=== PATIENT | female | born 1950 | race Caucasian/White ===

== ENCOUNTER → 2024-03-27 16:58 | Outpatient (REF) | payer MEDICARE, SELFPAY ==
[2024-03-27 18:22] LABS: % Basophils 0.8 % (0-2); % Eosinophils 2.3 % (0-6); % Monocytes 8.7 % (1.7-9.3); % Neutrophils 64.2 % (42.2-75.2); Absolute Eosinophils 0.1 10^3/uL (0-0.7); Absolute Lymphocytes 1.2 10^3/uL (1.2-3.4); Absolute Monocytes 0.5 10^3/uL (0.1-0.6); Absolute Neutrophils 3.3 10^3/uL (1.4-6.5); Hematocrit 43.6 % (37.0-47.0); Hemoglobin 14.1 g/dL (12.0-16.0); Mean Corp Hgb Conc. 32.3 g/dL (33.0-37.0); Mean Corpuscular Hgb 31.4 pg (27.0-31.0); Mean Corpuscular Volume 97.1 fL (81.0-99.0); Mean Platelet Volume 10.8 fL (7.4-10.4); Nucleated Red Blood Cells % 0 %; Platelet Count 180 10^3/uL (130-400); Red Blood Cell Count 4.49 10^6/uL (4.20-5.40); Red Cell Dist. Width 13.2 % (11.5-14.5); White Blood Cell Count 5.2 10^3/uL (4.8-10.8)
[2024-03-27 18:23] LABS: ALT (SGPT) < 10 U/L (0-35); AST (SGOT) 28 U/L (14-36); Albumin 4.4 g/dl (3.5-5.0); Alkaline Phosphatase 79 U/L (38-126); Blood Urea Nitrogen 20 mg/dl (7-17); Calcium 9.9 mg/dl (8.4-10.2); Carbon Dioxide 29 mmol/L (22-30); Chloride 99 mmol/L (98-107); Glucose 99 mg/dl (70-99); HDL Cholesterol 59 mg/dl; LDL Cholesterol, Calculated 115 mg/dl; Potassium 4.4 mmol/L (3.5-5.1); Sodium 137 mmol/L (135-145); Total Bilirubin 0.9 mg/dl (0.2-1.3); Total Cholesterol 194 mg/dl (50-199); Total Protein 6.8 g/dl (6.3-8.2); Triglyceride 101 mg/dl (10-149); Very Low Density Lipoprotein 20 mg/dl (0-30); eGFR > 60.00
[2024-03-27 18:53] LABS: TSH Reflex To Free T4 0.91 uIU/ml (0.47-4.68)
== END ==
LOC: CLAB 16:58
PROVIDERS: ATTENDING PHYSICIAN Internal Medicine
DX: G20.A1 Parkinson's disease without dyskinesia, without mention of fluctuations (principal); F41.9 Anxiety disorder, unspecified; E03.9 Hypothyroidism, unspecified
CPT/HCPCS: 36415; 80053; 80061; 84443; 85025

== ENCOUNTER 2025-05-15 02:35 | Inpatient (IN) | payer MEDICARE, SELFPAY ==
[2025-05-14 22:58] VITALS: BP 152/75; BMI 23.9
[2025-05-14 23:00] VITALS: BP 152/75
[2025-05-14] MEDS: ROXICODONE 5 MG PO (23:29)
--- NOTE | 2025-05-14 23:52 | ED.GENMED ---
History of Present Illness
<Avel Hernandez PA-C - Last Filed: 05/16/25 08:14>
General
Chief Complaint: Fall
Time Seen by Provider: 05/14/25 23:15
History of Present Illness
History of Present Illness:
75-year-old female with history of hypertension, hyperlipidemia, and Parkinson's presents for evaluation after a fall. States she lost her balance and fell onto her left side. Prior history of left total hip replacement. Having intense left hip
pain and unable to move the hip. No visible deformity noted on arrival. Denies headache or back pain. Denies head injury. Not on blood thinners.
Past History
<Avel Hernandez PA-C - Last Filed: 05/16/25 08:14>
Past History
ED Past Medical History: GERD, HTN, Hypercholesterolemia and Hypothyroidism
ED Past Surgical History: Gynecological
Social History
Tobacco: Non-smoker
Personal:
Living: with family
Review of Systems
<ADITI López Last Filed: 05/16/25 08:14>
Review of Systems
Allergies reviewed?: Yes
All Other Systems: ROS reviewed and negative except as documented in HPI and ROS
Phy Exam
<ADITI López Last Filed: 05/16/25 08:14>
Physical Exam
Physical Exam:
GEN: Well appearing, NAD, WDWN
HEENT: Oral mucosa moist, no scleral icterus
Cardiac: Regular rate
Lung: No respiratory distress, no tachypnea
MSK: No gross deformity or injuries. No appreciable deformity or shortening of the left lower extremity. Tenderness to palpation of the greater trochanter, left hip range of motion is normal however pain is elicited throughout entire field of
motion. No lumbar paraspinal or spinous process tenderness
Skin: Good color, no pallor or jaundice, no rashes
Neuro: AO x3, moves all extremities freely
Psych: Calm, cooperative
Course
<Avel Hernandez PA-C - Last Filed: 05/16/25 08:14>
Orders/Labs/Results
Orders:
Orders
05/14/25 23:20
Oxycodone [Roxicodone] 5 mg PO NOW STA
05/15/25 00:15
CR Hip - LT w/wo Pel 2-3 Vw* Urgent
Reason For Exam: fall
Include a pelvis x-ray?: Yes
05/15/25 00:28
CT Pelvis W/o Iv Contrast Urgent
Comment:
Reason For Exam: poss L hip fx
05/15/25 02:10
Admit/Transfer Patient As Directed
Co-Sign Provider:
Level of Care: Inpatient admission
Assign to:: Medical/Surgical
Physician / Group: Zena[facility]
Diagnosis: L periprosthetic femoral fracture
Reason for Hospitalization: Left periprosthetic femoral fracture
Expected length of stay greater than two midnights?: Yes
ELOS- Estimated Length of Stay in days: 2
I certify the patient meets the requirements for IP care: Yes
PRN Pain Medication Management As Directed
May give lesser potent ordered pain med per pt: Yes
preference::
Protocol:: Medication orders for pain may be administered in a
manner that supports deferring to patient preference
when the pt is:
- Requesting an ordered lesser potent pain medication.
Least to most potent pain medications are defined
as: acetaminophen < NSAID < tramadol < opioids
(morphine, oxycodone, hydromorphone).
- Requesting a lesser dose of the same medication IF
ORDERED.
- Requesting a less intrusive route of administration
if both routes are prescribed by the provider (PO <
IV).
05/15/25 02:12
Code Status As Directed
Resuscitation Status: Do not resuscitate
Reached after discussion with pt or family/Healthcare POA: Yes
05/15/25 02:13
DNR Bracelet Application ONCE
05/15/25 02:38
Ketorolac [Toradol] 15 mg IV NOW STA
05/15/25 03:25
HYDROmorphone [Dilaudid] 0.25 mg IV Q1HPRN PRN
Magnesium Hydroxide [Milk of Magnesia] 30 ml PO DAILYPRN PRN
Oxycodone [Roxicodone] 10 mg PO Q4HPRN PRN
Oxycodone [Roxicodone] 5 mg PO Q4HPRN PRN
05/15/25 03:25
Case Management Consult ONCE
Case Management Consult: Discharge Planning
ORTHOPEDIC CONSULT Routine
Consulting Provider: Ernst Arnold
Was physician already notified: Yes
Activity As Directed
Activity Level: With Assistance
Bladder Scan As Directed
Follow Bladder Retention/Intermittent Cath Algorithm?: Yes
PRN if no void in __ hours: 6
Comment: if not voiding 6 hrs upon arrival to floor, bladder scan & follow algorithm
Intake/ Output As Directed
Frequency: Per unit guidelines
Pneumatic Compression Sleeves As Directed
Type: Knee high
Straight Cath As Directed
Frequency: Per Retention Algorithm
Additional Instructions: straight cath as needed per acute urinary retention algorithm for 24 hrs
Additional Instructions: for bladder scan greater than 400 mL
Vital Signs As Directed
Frequency: Per unit guidelines
DX Deep Vein Thrombosis Video Routine
05/15/25 04:00
Acetaminophen [Tylenol] 650 mg PO Q4HWA
05/15/25 06:00
Levothyroxine [Synthroid] 100 mcg PO DAILY @ 0600
Rytary See Dose Instructions PO 0000,0600,1200,1800
05/15/25 08:00
Bupropion(24Hr)Extended Releas [WELLBUTRIN XL (24 hour extended release)] 300 mg PO DAILY
Magnesium Oxide 400 mg PO DAILY
Metoprolol [Lopressor] 50 mg PO DAILY
05/15/25 20:00
Docusate Sodium [Colace] 100 mg PO BID
Sennosides [Senokot] 17.2 mg PO BID
05/15/25 22:00
Melatonin 5 mg PO HS
Pantoprazole [Protonix] 40 mg PO HS
Vital Signs
Initial and Last Documented VS:
Initial Vital Signs
Temp Pulse Resp BP Pulse Ox
98.2 F 74 18 152/75 97
05/14/25 22:58 05/14/25 22:58 05/14/25 22:58 05/14/25 22:58 05/14/25 22:58
Last Documented Vital Signs
Temp Pulse Resp BP Pulse Ox
99.1 F 62 16 147/74 98
05/15/25 23:09 05/15/25 23:09 05/15/25 23:09 05/15/25 23:09 05/15/25 23:09
Helenlt;Krysta Cooley PA-C - Last Filed: 05/15/25 01:59>
Orders/Labs/Results
Orders:
Orders
05/14/25 23:20
Oxycodone [Roxicodone] 5 mg PO NOW STA
05/15/25 00:15
CR Hip - LT w/wo Pel 2-3 Vw* Urgent
Reason For Exam: fall
Include a pelvis x-ray?: Yes
05/15/25 00:28
CT Pelvis W/o Iv Contrast Urgent
Comment:
Reason For Exam: poss L hip fx
05/15/25 02:10
Admit/Transfer Patient As Directed
Co-Sign Provider:
Level of Care: Inpatient admission
Assign to:: Medical/Surgical
Physician / Group: Zenaida
Diagnosis: L periprosthetic femoral fracture
Reason for Hospitalization: Left periprosthetic femoral fracture
Expected length of stay greater than two midnights?: Yes
ELOS- Estimated Length of Stay in days: 2
I certify the patient meets the requirements for IP care: Yes
PRN Pain Medication Management As Directed
May give lesser potent ordered pain med per pt: Yes
preference::
Protocol:: Medication orders for pain may be administered in a
manner that supports deferring to patient preference
when the pt is:
- Requesting an ordered lesser potent pain medication.
Least to most potent pain medications are defined
as: acetaminophen < NSAID < tramadol < opioids
(morphine, oxycodone, hydromorphone).
- Requesting a lesser dose of the same medication IF
ORDERED.
- Requesting a less intrusive route of administration
if both routes are prescribed by the provider (PO <
IV).
05/15/25 02:12
Code Status As Directed
Resuscitation Status: Do not resuscitate
Reached after discussion with pt or family/Healthcare POA: Yes
05/15/25 02:13
DNR Bracelet Application ONCE
05/15/25 02:38
Ketorolac [Toradol] 15 mg IV NOW STA
05/15/25 03:25
HYDROmorphone [Dilaudid] 0.25 mg IV Q1HPRN PRN
Magnesium Hydroxide [Milk of Magnesia] 30 ml PO DAILYPRN PRN
Oxycodone [Roxicodone] 10 mg PO Q4HPRN PRN
Oxycodone [Roxicodone] 5 mg PO Q4HPRN PRN
05/15/25 03:25
Case Management Consult ONCE
Case Management Consult: Discharge Planning
ORTHOPEDIC CONSULT Routine
Consulting Provider: Ernst Arnold
Was physician already notified: Yes
Activity As Directed
Activity Level: With Assistance
Bladder Scan As Directed
Follow Bladder Retention/Intermittent Cath Algorithm?: Yes
PRN if no void in __ hours: 6
Comment: if not voiding 6 hrs upon arrival to floor, bladder scan & follow algorithm
Intake/ Output As Directed
Frequency: Per unit guidelines
Pneumatic Compression Sleeves As Directed
Type: Knee high
Straight Cath As Directed
Frequency: Per Retention Algorithm
Additional Instructions: straight cath as needed per acute urinary retention algorithm for 24 hrs
Additional Instructions: for bladder scan greater than 400 mL
Vital Signs As Directed
Frequency: Per unit guidelines
DX Deep Vein Thrombosis Video Routine
05/15/25 04:00
Acetaminophen [Tylenol] 650 mg PO Q4HWA
05/15/25 06:00
Levothyroxine [Synthroid] 100 mcg PO DAILY @ 0600
Rytary See Dose Instructions PO 0000,0600,1200,1800
05/15/25 08:00
Bupropion(24Hr)Extended Releas [WELLBUTRIN XL (24 hour extended release)] 300 mg PO DAILY
Magnesium Oxide 400 mg PO DAILY
Metoprolol [Lopressor] 50 mg PO DAILY
05/15/25 20:00
Docusate Sodium [Colace] 100 mg PO BID
Sennosides [Senokot] 17.2 mg PO BID
05/15/25 22:00
Melatonin 5 mg PO HS
Pantoprazole [Protonix] 40 mg PO HS
Vital Signs
Initial and Last Documented VS:
Initial Vital Signs
Temp Pulse Resp BP Pulse Ox
98.2 F 74 18 152/75 97
05/14/25 22:58 05/14/25 22:58 05/14/25 22:58 05/14/25 22:58 05/14/25 22:58
Last Documented Vital Signs
Temp Pulse Resp BP Pulse Ox
99.1 F 62 16 147/74 98
05/15/25 23:09 05/15/25 23:09 05/15/25 23:09 05/15/25 23:09 05/15/25 23:09
<Emmie Duran DO - Last Filed: 05/15/25 01:39>
Orders/Labs/Results
Orders:
Orders
05/14/25 23:20
Oxycodone [Roxicodone] 5 mg PO NOW STA
05/15/25 00:15
CR Hip - LT w/wo Pel 2-3 Vw* Urgent
Reason For Exam: fall
Include a pelvis x-ray?: Yes
05/15/25 00:28
CT Pelvis W/o Iv Contrast Urgent
Comment:
Reason For Exam: poss L hip fx
05/15/25 02:10
Admit/Transfer Patient As Directed
Co-Sign Provider:
Level of Care: Inpatient admission
Assign to:: Medical/Surgical
Physician / Group: Zenaida
Diagnosis: L periprosthetic femoral fracture
Reason for Hospitalization: Left periprosthetic femoral fracture
Expected length of stay greater than two midnights?: Yes
ELOS- Estimated Length of Stay in days: 2
I certify the patient meets the requirements for IP care: Yes
PRN Pain Medication Management As Directed
May give lesser potent ordered pain med per pt: Yes
preference::
Protocol:: Medication orders for pain may be administered in a
manner that supports deferring to patient preference
when the pt is:
- Requesting an ordered lesser potent pain medication.
Least to most potent pain medications are defined
as: acetaminophen < NSAID < tramadol < opioids
(morphine, oxycodone, hydromorphone).
- Requesting a lesser dose of the same medication IF
ORDERED.
- Requesting a less intrusive route of administration
if both routes are prescribed by the provider (PO <
IV).
05/15/25 02:12
Code Status As Directed
Resuscitation Status: Do not resuscitate
Reached after discussion with pt or family/Healthcare POA: Yes
05/15/25 02:13
DNR Bracelet Application ONCE
05/15/25 02:38
Ketorolac [Toradol] 15 mg IV NOW STA
05/15/25 03:25
HYDROmorphone [Dilaudid] 0.25 mg IV Q1HPRN PRN
Magnesium Hydroxide [Milk of Magnesia] 30 ml PO DAILYPRN PRN
Oxycodone [Roxicodone] 10 mg PO Q4HPRN PRN
Oxycodone [Roxicodone] 5 mg PO Q4HPRN PRN
05/15/25 03:25
Case Management Consult ONCE
Case Management Consult: Discharge Planning
ORTHOPEDIC CONSULT Routine
Consulting Provider: Ernst Arnold
Was physician already notified: Yes
Activity As Directed
Activity Level: With Assistance
Bladder Scan As Directed
Follow Bladder Retention/Intermittent Cath Algorithm?: Yes
PRN if no void in __ hours: 6
Comment: if not voiding 6 hrs upon arrival to floor, bladder scan & follow algorithm
Intake/ Output As Directed
Frequency: Per unit guidelines
Pneumatic Compression Sleeves As Directed
Type: Knee high
Straight Cath As Directed
Frequency: Per Retention Algorithm
Additional Instructions: straight cath as needed per acute urinary retention algorithm for 24 hrs
Additional Instructions: for bladder scan greater than 400 mL
Vital Signs As Directed
Frequency: Per unit guidelines
DX Deep Vein Thrombosis Video Routine
05/15/25 04:00
Acetaminophen [Tylenol] 650 mg PO Q4HWA
05/15/25 06:00
Levothyroxine [Synthroid] 100 mcg PO DAILY @ 0600
Rytary See Dose Instructions PO 0000,0600,1200,1800
05/15/25 08:00
Bupropion(24Hr)Extended Releas [WELLBUTRIN XL (24 hour extended release)] 300 mg PO DAILY
Magnesium Oxide 400 mg PO DAILY
Metoprolol [Lopressor] 50 mg PO DAILY
05/15/25 20:00
Docusate Sodium [Colace] 100 mg PO BID
Sennosides [Senokot] 17.2 mg PO BID
05/15/25 22:00
Melatonin 5 mg PO HS
Pantoprazole [Protonix] 40 mg PO HS
Vital Signs
Initial and Last Documented VS:
Initial Vital Signs
Temp Pulse Resp BP Pulse Ox
98.2 F 74 18 152/75 97
05/14/25 22:58 05/14/25 22:58 05/14/25 22:58 05/14/25 22:58 05/14/25 22:58
Last Documented Vital Signs
Temp Pulse Resp BP Pulse Ox
99.1 F 62 16 147/74 98
05/15/25 23:09 05/15/25 23:09 05/15/25 23:09 05/15/25 23:09 05/15/25 23:09
<Avel Hernandez PA-C - Last Filed: 05/16/25 08:14>
MDM/Problems Addressed
MDM/Problems Addressed:
75 yo female presents after mechanical fall. She is markedly tender on exam despite lack of deformity. XR of the hip independently interpreted by me is suspicious for a non displaced fx line extending from the femoral stem of her hardware,
longitudinally oriented. Will confirm with non contrast CT. Signed out to Krysta Cooley PA-C pending CT reading. Anticipate admission either way due to pain
<Avel Hernandez PA-C - Last Filed: 05/16/25 08:14>
*Pulse Oximetry
SaO2: 97
Oxygen Mode of Delivery: Room air
<Krysta Cooley PA-C - Last Filed: 05/15/25 01:59>
*Pulse Oximetry
Patient hypoxic: no
*Critical Care Note
Total Time (30-74mins, 75-104mins- exclusive of procedures): Not Applicable
<Krysta YairAndra Cooley PA-C - Last Filed: 05/15/25 01:59>
Update Note
Update Note:
Update
1:34 am, I received patient in signout. CT reveals left acute periprosthetic fracture of the left proximal to mid femoral shaft. Patient not requesting additional pain control at this time. Hip replacement done by Dr. Garcia. Will refer for
admission. ED attending aware
ED Attending Note
<Avel Hernandez PA-C - Last Filed: 05/16/25 08:14>
-
Portions of this chart may have been created with voice recognition software.� Occasional wrong word or��sound alike� substitutions may have occurred due to the inherent limitations of voice recognition software.
<Emmie Duran DO - Last Filed: 05/15/25 01:39>
ED Attending Note
ED Attending Note:
75-year-old female with prior history of left hip replacement presenting for hip pain after she fell losing her balance. Patient notes inability to bear weight. Denies head injury or loss denies. Vital signs significant for mild hypertension,
however resolved without intervention.
On exam patient in no acute distress. No obvious deformity to left hip. Distal sensation and pulses intact. Limited range of motion secondary to pain. Initial x-ray without obvious fracture. However, CT obtained given patient's discomfort and
inability bear weight which shows periprosthetic fracture. Will make orthopedics aware and plan for admission.
Discharge Plan
Departure
Patient Disposition: Admit
Date of Disposition: 05/15/25
Time of Disposition: 01:41
Admit to: Med/Surg
Presentation/result/management discussed w/ accepting MD/DO: Hospitalist
Patient with high blood pressure during this ER visit?: Yes
Condition: Fair
Discharge Problem:
Periprosthetic fracture around internal prosthetic left hip joint
Interventions
Interventions:
*Risk Screen - Suicide Last Done: 05/14/25 22:58
*General Assessment Last Done: 05/14/25 22:58
*Neglect/Abuse Screening Last Done: 05/14/25 22:58
*ED- Fall Risk Assessment Last Done: 05/14/25 22:58
*ED COVID-19 Vaccine History Last Done: 05/14/25 22:58
*ED Influenza Vaccine History Last Done: 05/14/25 22:58
*Nursing Disposition Last Done: 05/15/25 03:41
ED-Musculoskeletal Assessment Last Done: 05/14/25 23:06
ED- Neurological Assessment Last Done: 05/14/25 23:06
ED-Skin Assessment Last Done: 05/14/25 23:06
Discharge Date and Time
Discharge Date/Time: 05/15/25 03:53
[2025-05-15] VITALS (10 sets, daily range): BP systolic 124–161; BP diastolic 63–74; PULSE 57–65; O2SAT 99; BMI 24.5
--- NOTE | 2025-05-15 01:47 | HPS.HSE ---
Family Physician
-
Family Physician: Baltazar Osuna
Chief Complaint
-
Trip and fall
History of Present Illness
75-year-old female with past medical history significant for Parkinson's disease, hypertension, hyperlipidemia, GERD, hypothyroid and history of left hip replacement who presents to the emergency department following a mechanical fall.
Patient reported that ankle seemed to twist while she was walking and then she fell on her left side. She braced her fall with left arm and did not strike her head on the floor. She did land on her left leg area and started having pain
immediately. There was no loss of consciousness. She denied feeling dizzy or lightheaded. She denied any focal weakness beyond baseline. She does ambulate with a walker at baseline and does have baseline tremor and gait difficulty. She lives
with spouse as well as her children.
In the emergency room she was afebrile, blood pressure was 131/60 with a pulse of 65 and she was satting 98% on room air. CT shows a left total hip replacement with acute periprosthetic, comminuted longitudinal oriented fracture of the left
proximal to mid femoral shaft.
Medical History
Past Medical History
Past Medical History: Reports GERD, HTN, Hypercholesterolemia, Hypothyroidism and Other (Uterine fibroids)
Past Surgical History: Reports Cholecystectomy, Gynocological (Oophorectomy), Orthopedic (Left total hip arthroplasty) and Tonsilectomy
Social History
Tobacco: Non-smoker
Alcohol: None
Drug: None
Personal:
Living: With Family
Employment: Retired
Family History
Family History: Not pertinent
Allergies / Home Medications
Allergies reflects when Allergies were last updated in [employer].
Home Medications with original date entered in [employer]
Allergy/Medication List:
Allergies
Allergy/AdvReac Type Severity Reaction Status Date / Time
erythromycin base Allergy ABDOMINAL Verified 12/20/19 10:53
CRAMPING
AND
BLOATING
metaxalone (From Skelaxin) Allergy Unknown Verified 12/20/19 10:53
nifedipine (From Procardia) Allergy FATHER Verified 12/20/19 10:53
FROM
PROCARDIA
AND
PATIENT
WAS TOLD
NOT TO TAKE
Penicillins Allergy Anaphylaxis-ITCHING Verified 12/20/19 10:53
AND
SWELLING
prochlorperazine edisylate Allergy 'facial Verified 12/20/19 10:53
(From Compazine) twitching'
prochlorperazine maleate Allergy 'facial Verified 12/20/19 10:53
(From Compazine) twitching'
Sulfa (Sulfonamide Allergy Swelling, Verified 01/02/20 08:35
Antibiotics) itching,
reddened
skin
sumatriptan Allergy severe Verified 12/20/19 10:53
tingling
and
burning of
skin
triamcinolone Allergy Rash/FACIAL Verified 12/20/19 10:53
FLUSH
cillins Allergy Swelling Uncoded 12/20/19 10:53
pollen Allergy Itching Uncoded 12/20/19 10:53
Home Medications
Lydia 1 tab PO DAILY Allergies 11/08/16
[id number] 0.4 mg-calcium 162 mg-iron 18 vm-mfrnisy-oozyvs tablet 1 tab PO DAILY Supplement 11/08/16
Zinc 25 mg PO QPM Stroke 12/20/19
acetaminophen 650 mg tablet,extended release (Tylenol Arthritis) 1,300 mg PO Q8H Pain 12/20/19
aluminum hydrox-magnesium carb 95 mg-358 mg/15 mL oral suspension (Acid Gone Antacid) 1 dose PO PRN PRN constipation 12/20/19
bupropion HCl 150 mg 24 hr tablet, extended release 300 mg PO DAILY Mental Health/Anxiety 12/20/19
cholecalciferol (vitamin D3) 25 mcg (1,000 unit) tablet 3,000 units PO DAILY Supplement 12/20/19
fluticasone propionate 50 mcg/actuation nasal spray,suspension 1 spray intranasal PRN PRN congestion 12/20/19
levothyroxine 100 mcg tablet 100 mcg PO DAILY@0700 Thyroid 12/20/19
magnesium 200 mg tablet 600 mg PO DAILY Supplement 12/20/19
melatonin 5 mg tablet 5 mg PO HS Sleep 12/20/19
metoprolol tartrate 50 mg tablet 50 mg PO DAILY Blood pressure 12/20/19
mupirocin 2 % topical ointment 1 applic intranasal BID #1 tube 12/21/19
aspirin 325 mg tablet,delayed release 325 mg PO DAILY 01/03/20
magnesium hydroxide 400 mg/5 mL oral suspension 30 ml PO DAILYPRN PRN constipation 01/03/20
omeprazole 40 mg capsule,delayed release 40 mg PO HS Gastrointestinal issue ##0 01/03/20
pantoprazole 40 mg tablet,delayed release 40 mg PO HS 01/03/20
tramadol 50 mg tablet 50 mg PO Q6HPRN PRN moderate-severe pain #35 tabs 01/03/20
Rytary 48.75 mg PO 4XD 05/15/25
Review of Systems
-
Constitutional: Reports No Symptoms
EENT: Reports No Symptoms
Respiratory: Reports No Symptoms
Cardiac: Reports No Symptoms
Abdomen/GI: Reports No Symptoms
: Reports No Symptoms
Musculoskeletal: Reports Joint Pain
Skin: Reports No Symptoms
Neurological: Reports No Symptoms
Endocrine: Reports No Symptoms
Hematologic/Lymphatic: Reports No Symptoms
Psych: Reports No Symptoms
Physical Exam
Vital Signs
Vital Signs
Temp Pulse Resp BP Pulse Ox
98.2 F 65 17 131/66 96
05/14/25 22:58 05/15/25 01:15 05/15/25 01:15 05/15/25 01:00 05/15/25 01:15
Physical Exam
General: No Apparent Distress
HEENT: NormoCephalic, Moist mucous membranes and Atraumatic
Respiratory: Clear
Cardiac: S1/S2 and Regular Rhythm; No Murmur or Rub
GI: Soft, Non Tender, Non Distended and Normal Bowel Sounds; No Organomegaly
Rectal: Deferred by Provider
Genito-urinary: Deferred by me
Musculoskeletal: No Clubbing, No Cyanosis, No Edema and Other (distal pulses intact bilaterally)
Skin: No Rash
Neuro: AO x 3, Nonfocal/grossly intact and Tremors
Psych: Calm
Data Reviewed
-
Diagnostic Radiology: Image Personally Visualized and interpreted
CT Scan: Report Reviewed by me
Lab Data: Labs Reviewed by me
Old Records: Reviewed
Impression/Plan
-
IMPRESSION:
75-year-old presents to the emergency department following a trip and fall, no loss of consciousness and no x-ray. She is not on any blood thinners. She is found to have a periprosthetic comminuted longitudinally oriented fracture of the left
proximal to mid femoral shaft. Distal pulses are intact. Patient is nontoxic appearing.
PLAN:
Acute periprosthetic comminuted longitudinally oriented left femoral fracture
- admit to med/surg
- pain control
- no weight bearing for now
- pain control , iv fluids
- ortho aware
- no thinners
- PT consult
- ortho consulted
Parkinson
- continue patient own Rytari q 6H
Hypothyroid
- continue her levothyroxine
continue metoprolol, hold aspirin 325, continue ppi
DVT Px - SCDs
Code status - DNR
[2025-05-15] MEDS: TORADOL 15 MG IV (02:56)
[2025-05-15] MEDS: ROXICODONE 5 MG PO (03:51)
[2025-05-15] MEDS: TYLENOL PO (04:36)
--- NOTE | 2025-05-15 05:14 | PTCARENOTE ---
Recieved 75 yr old female from ED with diagnosis of L hip periprosthetic Fracture, alert, ox4 pleasant, VS stable,call light within reach, pt verbalized no complaints.
[2025-05-15] MEDS: NON-FORMULARY ITEM 48.7 MG PO (06:16)
[2025-05-15] MEDS: SYNTHROID 100 MCG PO (06:16)
[2025-05-15 07:22] LABS: Hematocrit 36.4 % (37.0-47.0); Hemoglobin 12.1 g/dL (12.0-16.0); Mean Corp Hgb Conc. 33.2 g/dL (33.0-37.0); Mean Corpuscular Volume 92.2 fL (81.0-99.0); Nucleated Red Blood Cells % 0 %; Platelet Count 183 10^3/uL (130-400); Red Cell Dist. Width 12.6 % (11.5-14.5)
[2025-05-15 07:30] LABS: Blood Urea Nitrogen 19 mg/dl (7-17); Calcium 9.5 mg/dl (8.4-10.2); Carbon Dioxide 29 mmol/L (22-30); Chloride 103 mmol/L (98-107); Estimated Creatinine Clearance 69 ml/min; Glucose 96 mg/dl (70-99); Potassium 4.2 mmol/L (3.5-5.1); Sodium 134 mmol/L (135-145); eGFR > 60.00
--- NOTE | 2025-05-15 08:15 | W.PN.HOSP.TC ---
Today's Communication/Plan
-
see plan
Assessment / Plan
Assessment / Plan
75-year-old presents to the emergency department following a trip and fall, no loss of consciousness and no x-ray. She is not on any blood thinners. She is found to have a periprosthetic comminuted longitudinally oriented fracture of the left
proximal to mid femoral shaft. Distal pulses are intact. Patient is nontoxic appearing.
Gen: NAD, AAOx3.
Eyes: EOMI, PERRLA, no scleral icterus.
Neck: supple.
CV: RRR, +S1/S2, no m/r/g.
Resp: CTAB, no rales, wheezes, or rhonchi.
Abd: +BS, soft, NT, ND
Skin: No rashes.
Neuro: CN 2-12 intact, non-focal.
Psych: Normal mood and affect.
CT pelvis:
1. Longitudinally oriented fracture of the proximal left humerus, extending from the subtrochanteric region to approximately the level of the inferior tip of the femoral component of the left hip prosthetic.
2. Calcified uterine fibroids.
Acute periprosthetic comminuted longitudinally oriented left femoral fracture:
-as per ortho no surgical intervention indicated at this tiem
-pain control
-NWB LLE
-allow pt to eat
-PT/OT
-dispo planning
Other problems:
Parkinson's disease: cont Rytary
Hypothyroid: cont Levoxyl
Essential HTN: cont BB
GERD: cont PPI
DNR/SCDs
Anticipated Discharge: 24 - 48 hours
Subjective/Interval History
-
Date of Service: May 15, 2025
No new complaints.
Objective Data
-
Labs:
Laboratory Results
05/15/25
06:56
WBC 7.9
Hgb 12.1
Hct 36.4 L
Plt Count 183
Sodium 134 L
Potassium 4.2
Chloride 103
Carbon Dioxide 29
BUN 19 H
Creatinine 0.6
Glucose 96
Calcium 9.5
Vital Signs:
Vital Signs
Temp Pulse Resp BP Pulse Ox
98.3 F 63 16 139/67 98
05/15/25 07:35 05/15/25 07:35 05/15/25 07:35 05/15/25 07:35 05/15/25 07:35
I&O
05/14/25 05/15/25 05/16/25
06:59 06:59 06:59
Output Total 500 / 500
Balance -500 / -500
[2025-05-15] MEDS: D5/0.9% SODIUM CHLORIDE 1000 IV (08:31)
[2025-05-15] MEDS: MAGNESIUM OXIDE 400 MG PO (08:36)
[2025-05-15] MEDS: TYLENOL 650 MG PO ×4 (08:36→20:01)
[2025-05-15] MEDS: WELLBUTRIN XL (24 hour extended release) 300 MG PO (08:36)
[2025-05-15] MEDS: LOPRESSOR 50 MG PO (08:36)
--- NOTE | 2025-05-15 08:49 | W.PN.UPDATE ---
Update Note
Progress Note Update
Full consult to be dictated.
75 year old female with periprosthetic left femur fracture.
-X-rays with no obvious fracture. Non displaced femur fracture around prosthesis noted on CT scan.
-Imaging reviewed with Dr. Arnold and Dr. Garcia. No surgical intervention required at this point.
-NWB LLE.
-PT/OT as able.
-Case management for d/c recommendations.
[2025-05-15] MEDS: NON-FORMULARY ITEM 48.75 MG PO ×2 (11:32→17:04)
--- NOTE | 2025-05-15 11:56 | CM ---
Patient seen at bedside on . Patient states that she lives with her and her son's family in a 2 story home. They have 2 walkers and a wheelchair. Patient states that she is open to therapy recommendations for level of care needs.
Patient PCP is Dr. Osuna and she uses the [facility] in [place]. Patient stated she is awaiting clarification if she will need surgery. CM will continue to follow for discharge planning needs.
Plan; SNF vs home with VN pending therapy recommendations
--- NOTE | 2025-05-15 12:53 | CON.ORTHO ---
Consultation
-
Date/Time Consultation Requested: 05/15/2025
Date/Time Consultation Performed: 05/15/2025
Requesting Provider: Dr. Estevez
Performing Provider: Anuja Olguin PA-C, for Dr. Arnold
Reason for Consultation: Left periprosthetic femur fracture
Consultation - Orthopedics
History
HPI: Ms. Herring is a 75-year-old female who presented to [facility] after sustaining a fall onto her left hip. She states that she was attempting to walk around the other side of her bed when her foot got caught, causing her to fall and
land on her left side. She does believe she is able to brace on the right fall with her arm. Following the injury, she was unable to get herself up and ambulate. Of note, she is status post a left total hip arthroplasty, performed under the
direction of Dr. Garcia on 01/02/2020. She did not have any issues prior to this fall. Initial x-rays taken in the emergency department were negative for acute fracture, however, with her significant pain and difficulty ambulating, CT scan was
performed. The CT scan demonstrated a nondisplaced periprosthetic femur fracture longitudinal in nature extending from the proximal femur through the subtrochanteric region to approximately the level of the anterior tip of the femoral component of
the left hip prosthesis. Our orthopedic specialty was consulted in to discuss definitive management. Of note, she does have Parkinson's.
past medical history: Significant for GERD, hypertension, hyperlipidemia, hypothyroidism.
Past surgical history: Gynecological.
Social history: Denies tobacco or alcohol use. Lives with her oldest son and his family. Has a significant other that she cares for.
Family history: Noncontributory.
Review of systems: All systems reviewed and negative except for those mentioned in HPI.
Allergies / Home Medications
Allergy/AdvReac Type Severity Reaction Status Date / Time
erythromycin base Allergy ABDOMINAL Verified 12/20/19 10:53
CRAMPING
AND
BLOATING
metaxalone (From Skelaxin) Allergy Unknown Verified 12/20/19 10:53
nifedipine (From Procardia) Allergy FATHER Verified 12/20/19 10:53
FROM
PROCARDIA
AND
PATIENT
WAS TOLD
NOT TO TAKE
Penicillins Allergy Anaphylaxis-ITCHING Verified 12/20/19 10:53
AND
SWELLING
prochlorperazine edisylate Allergy 'facial Verified 12/20/19 10:53
(From Compazine) twitching'
prochlorperazine maleate Allergy 'facial Verified 12/20/19 10:53
(From Compazine) twitching'
Sulfa (Sulfonamide Allergy Swelling, Verified 01/02/20 08:35
Antibiotics) itching,
reddened
skin
sumatriptan Allergy severe Verified 12/20/19 10:53
tingling
and
burning of
skin
triamcinolone Allergy Rash/FACIAL Verified 12/20/19 10:53
FLUSH
cillins Allergy Swelling Uncoded 12/20/19 10:53
pollen Allergy Itching Uncoded 12/20/19 10:53
�Medication �Instructions �Recorded
Lydia 1 tab PO DAILY Allergies 11/08/16
bienmxhx-bbl-SI 0.4 mg-calcium 162 1 tab PO DAILY Supplement 11/08/16
mg-iron 18 wt-motleyi-zuhpeo tablet
Zinc 25 mg PO QPM Stroke 12/20/19
acetaminophen 650 mg 1,300 mg PO Q8H Pain 12/20/19
tablet,extended release (Tylenol
Arthritis)
aluminum hydrox-magnesium carb 95 1 dose PO PRN PRN constipation 12/20/19
mg-358 mg/15 mL oral suspension
(Acid Gone Antacid)
bupropion HCl 150 mg 24 hr tablet, 300 mg PO DAILY Mental 12/20/19
extended release Health/Anxiety
cholecalciferol (vitamin D3) 25 3,000 units PO DAILY Supplement 12/20/19
mcg (1,000 unit) tablet
fluticasone propionate 50 1 spray intranasal PRN PRN 12/20/19
mcg/actuation nasal congestion
spray,suspension
levothyroxine 100 mcg tablet 100 mcg PO DAILY@0700 Thyroid 12/20/19
magnesium 200 mg tablet 600 mg PO DAILY Supplement 12/20/19
melatonin 5 mg tablet 5 mg PO HS Sleep 12/20/19
metoprolol tartrate 50 mg tablet 50 mg PO DAILY Blood pressure 12/20/19
mupirocin 2 % topical ointment 1 applic intranasal BID #1 tube 12/21/19
aspirin 325 mg tablet,delayed 325 mg PO DAILY 01/03/20
release
magnesium hydroxide 400 mg/5 mL 30 ml PO DAILYPRN PRN constipation 01/03/20
oral suspension
omeprazole 40 mg capsule,delayed 40 mg PO HS Gastrointestinal issue 01/03/20
release ##0
pantoprazole 40 mg tablet,delayed 40 mg PO HS 01/03/20
release
tramadol 50 mg tablet 50 mg PO Q6HPRN PRN 01/03/20
moderate-severe pain #35 tabs
Rytary 48.75 mg PO 4XD 05/15/25
Vital Signs / Lab Results
Temp Pulse Resp BP Pulse Ox
98.3 F 63 16 139/67 98
05/15/25 07:35 05/15/25 07:35 05/15/25 07:35 05/15/25 07:35 05/15/25 07:35
05/15/25 06:56
05/15/25 06:56
Physical examination:
General: Well-developed, well-nourished female in no acute distress at rest.
HEENT: Atraumatic, no cephalic, neck supple.
Lungs: Nonlabored breathing on room air. No audible wheezing.
Heart: Regular rate and rhythm.
Left hip: No obvious swelling or ecchymoses. Minimal tenderness to palpation over the proximal femur. Logroll without pain. Gentle range of motion, particularly internal rotation, elicits pain in the left hip and anterior thigh. Calves are soft
and nontender to palpation. Neurovascular intact distally.
Radiographic studies:
X-rays of the pelvis and left hip demonstrate no obvious fracture. Left total hip arthroplasty present with no signs of complication. No loosening.
CT scan of the pelvis demonstrates a longitudinal fracture of the proximal femur extending from the subtrochanteric region to the proximal portion of the implant. Stem appears stable
Assessment / Plan
Assessment: Left periprosthetic femur fracture.
Plan: Unfortunately, Ms. Herring sustained a proximal femur fracture during her fall yesterday. This remains nondisplaced and the femoral stem of the left total hip arthroplasty appears unchanged after reviewing imaging with Dr. Arnold and
Radha. As a result, this fracture can be managed nonoperatively with nonweightbearing status of her LLE. A lengthy discussion was had with Ms. Herring in regards to the fracture, healing, and restrictions going forward. A PT order was placed to
assist her in navigating her nonweightbearing status on her left lower extremity. We did discuss the potential for a rehab stay until she is able to independently get around at home. We will plan to see her back in 2 weeks for repeat x-rays to
rule out fracture displacement. She is aware that if the fracture displaces, revision surgery may be necessary. We will check in on her tomorrow after physical therapy to further answer any additional questions.
--- NOTE | 2025-05-15 16:29 | PTCARENOTE ---
no urine output for 6 hrs, bladder scan 421, pt was able to void roughly 200 through purwick. bladder scan 216
[2025-05-15] MEDS: SENOKOT PO (20:02)
[2025-05-15] MEDS: COLACE PO (20:02)
[2025-05-15] MEDS: PROTONIX 40 MG PO (21:24)
[2025-05-15] MEDS: MELATONIN 5 MG PO (21:24)
[2025-05-16] MEDS: NON-FORMULARY ITEM 48.75 MG PO ×3 (00:01→23:51)
[2025-05-16] MEDS: TYLENOL 650 MG PO ×6 (00:02→23:51)
[2025-05-16] MEDS: ROXICODONE 5 MG PO ×3 (01:00→15:17)
[2025-05-16] MEDS: TYLENOL PO (04:55)
[2025-05-16] MEDS: SYNTHROID 100 MCG PO (05:31)
[2025-05-16 07:00] VITALS: BP 108/61
--- NOTE | 2025-05-16 07:53 | W.PN.UPDATE ---
Update Note
Progress Note Update
Ms. Herring is resting comfortably in her chair this morning. She does endorse aching pain about the hip, and endorses increased pain with movement of the leg. She does report her pain is controlled with her current medication regimen.
Directed exam of the left hip reveals mild tenderness to palpation about the hip. Calf soft and nontender. NVID.
Left periprosthetic femur fracture
--Non-weight bearing to left lower extremity. We appreciate the assistance of PT/OT.
--Case management consult for dc planning.
--Pain control prn. Ice and elevation for edema control.
--We will plan to see her back in the office in 2 weeks for repeat x-rays to assess for interval changes of her fracture. Orthopedics will sign off for now. Please reach out with any additional orthopedic questions or concerns.
[2025-05-16] MEDS: COLACE 100 MG PO ×2 (09:01→20:09)
[2025-05-16] MEDS: LOPRESSOR 50 MG PO (09:01)
[2025-05-16] MEDS: MAGNESIUM OXIDE 400 MG PO (09:01)
[2025-05-16] MEDS: WELLBUTRIN XL (24 hour extended release) 300 MG PO (09:01)
[2025-05-16] MEDS: SENOKOT 17.2 MG PO (09:01)
[2025-05-16 09:52] VITALS: BP 103/64; PULSE 75; O2SAT 97
[2025-05-16 10:16] VITALS: BP 103/64; PULSE 75; O2SAT 98
--- NOTE | 2025-05-16 11:32 | CM ---
Addendum entered by Marlen Ortiz 05/16/25 16:46:
Patient is accepted to go to [facility] and qualifies under Waiver [facility]. CM faxed clinical information to Rod at [facility] and await confirmation of auth. Patient family aware and in agreement with [facility] if auth and if not they are going to work with
[facility] for private pay. CM will continue to follow for discharge planning needs.
Plan; SNF
Addendum entered by Marlen Ortiz 05/16/25 15:04:
CM spoke again with son Marc and he indicated that he would call to [facility] to discuss options as they would really like [facility]. CM sent tt to [facility] Liaison to request contact. Son also considering additional options. CM will continue to follow for
discharge planning needs.
Original Note:
CM met with patient and son/significant other at bedside. Patient reviewed options with family and requested [facility], [facility] and [facility]. Referrals sent via all scripts and awaiting confirmation of acceptance/bed. CM will continue to follow for
discharge planning needs.
Plan; SNF
[2025-05-16] MEDS: NON-FORMULARY ITEM 1 MG PO ×2 (12:33→17:46)
[2025-05-16 15:00] VITALS: BP 126/59
[2025-05-16] MEDS: SENOKOT PO (20:11)
[2025-05-16] MEDS: PROTONIX 40 MG PO (21:34)
[2025-05-16] MEDS: MELATONIN 5 MG PO (21:34)
[2025-05-16 23:09] VITALS: BP 132/60
[2025-05-17] MEDS: TYLENOL 650 MG PO ×3 (03:30→12:14)
[2025-05-17] MEDS: NON-FORMULARY ITEM 48.75 MG PO (05:36)
[2025-05-17] MEDS: SYNTHROID 100 MCG PO (05:36)
[2025-05-17] MEDS: ROXICODONE 5 MG PO ×2 (06:27→12:14)
[2025-05-17 08:00] VITALS: BP 137/61
--- NOTE | 2025-05-17 08:14 | W.PN.HOSP.TC ---
Addendum entered and electronically signed by Ernst Cabrera MD 05/17/25 14:06:
Total time spent on d/c = 34 min. This included today's physical exam, progress note, review of laboratory and diagnostic data, preparation of discharge documents and prescriptions, and discussions about the pt's hospital course and discharge plan
with the patient and other medical services coordinator involved in the patient's care.
Original Note:
Today's Communication/Plan
-
d/c
Assessment / Plan
Assessment / Plan
75-year-old presents to the emergency department following a trip and fall, no loss of consciousness and no x-ray. She is not on any blood thinners. She is found to have a periprosthetic comminuted longitudinally oriented fracture of the left
proximal to mid femoral shaft. Distal pulses are intact. Patient is nontoxic appearing.
Gen: NAD, AAOx3.
Eyes: EOMI, PERRLA, no scleral icterus.
Neck: supple.
CV: remains RRR, +S1/S2, no m/r/g.
Resp: remains CTAB, no rales, wheezes, or rhonchi.
Abd: remains +BS, soft, NT, ND
Skin: No rashes.
Neuro: CN 2-12 intact, non-focal.
Psych: Normal mood and affect.
CT pelvis:
1. Longitudinally oriented fracture of the proximal left humerus, extending from the subtrochanteric region to approximately the level of the inferior tip of the femoral component of the left hip prosthetic.
2. Calcified uterine fibroids.
Acute periprosthetic comminuted longitudinally oriented left femoral fracture:
-as per ortho no surgical intervention indicated at this tiem
-pain control
-NWB LLE
-PT/OT
Other problems:
Parkinson's disease: cont Rytary
Hypothyroid: cont Levoxyl
Essential HTN: cont BB
GERD: cont PPI
DNR/SCDs
Remains medically cleared for d/c since 05/15/25AM, case management has been updated on this daily.
Anticipated Discharge: Today
Subjective/Interval History
-
Date of Service: May 17, 2025
No new complaints.
Objective Data
-
Vital Signs:
Vital Signs
Temp Pulse Resp BP Pulse Ox
97.4 F 60 16 132/60 97
05/16/25 23:09 05/16/25 23:09 05/16/25 23:09 05/16/25 23:09 05/16/25 23:09
I&O
05/16/25 05/17/25 05/18/25
06:59 06:59 06:59
Intake Total 640 / 640 2460 / 2460
Output Total 800 / 800 850 / 850
Balance -160 / -160 1610 / 1610
[2025-05-17] MEDS: MAGNESIUM OXIDE 400 MG PO (09:15)
[2025-05-17] MEDS: COLACE 100 MG PO (09:15)
[2025-05-17] MEDS: SENOKOT 17.2 MG PO (09:15)
[2025-05-17] MEDS: LOPRESSOR 50 MG PO (09:15)
[2025-05-17] MEDS: WELLBUTRIN XL (24 hour extended release) 300 MG PO (09:15)
--- NOTE | 2025-05-17 10:05 | CM ---
Per Christian they are stating that patient is clinicaly approved and Rod is awaiting call from [facility] to confirm bed. Rod is to call me back with auth and patient is to go to [facility] today after 3 pm.
--- NOTE | 2025-05-17 10:55 | CM ---
Addendum entered by Marlen Ortiz 05/17/25 10:56:
Auth confirmed with [employer] and requested pm transfer. Please call report [phone]/fax [phone]
Original Note:
Patient confirmed that she would accept transfer to [facility] and CM called to son to confirm plan. IMM reviewed verbally and agreed upon, copy given to patient.
[2025-05-17 12:00] VITALS: BP 137/75
[2025-05-17] MEDS: SINEMET 25-100 1 TABLET PO (12:14)
--- NOTE | 2025-05-17 14:25 | W.DCSUMMARY ---
Discharge Summary
Discharge Data
Date of Admission: 05/15/25
Date of Discharge: 05/17/25
-
Pending Results: No
Hospital Course
Primary diagnoses:
Acute periprosthetic comminuted longitudinally oriented left femoral fracture
Secondary diagnoses:
Parkinson's disease
Hypothyroidism
Essential hypertension
Gastroesophageal reflux disease
Consultants:
Orthopedics
Imaging:
CT pelvis:
1. Longitudinally oriented fracture of the proximal left humerus, extending from the subtrochanteric region to approximately the level of the inferior tip of the femoral component of the left hip prosthetic.
2. Calcified uterine fibroids.
Hospital course: 75-year-old female initially presented with a chief complaint of mechanical falls on HPI on admission. The patient had an acute periprosthetic comminuted longitudinal oriented left femoral fracture. She was seen by orthopedics and
no surgical intervention was indicated. She was seen by physical therapy and Occupational Therapy. She is to be nonweightbearing on the left lower extremity. She is being discharged in medically stable condition.
Discharge Plan
-
Patient Disposition: Penitentiary/SNF
Discharge Diagnosis/Procedures: Left periprosthetic femur fracture
Condition: Good
Diet: Regular
Activity: Do not bear weight L leg
Driving Restrictions: No driving
Referrals:
Baltazar Osuna MD [Family Provider, Internal Medicine] - in less than 1 week
Prescriptions:
Continued
Lydia
1 tab PO DAILY
rt-ehd-IH-Rn-Ed-lqhcrdb-lutein 1 EACH tablet
1 tab PO DAILY
Acid Gone Antacid 15 ML suspension
1 dose PO PRN PRN (Reason: constipation)
acetaminophen [Tylenol Arthritis] 650 MG tablet extended release
1,300 mg PO Q8H
levothyroxine 100 MCG tablet
100 mcg PO DAILY@0700
metoprolol tartrate 50 MG tablet
50 mg PO DAILY
fluticasone propionate 1 SPRAY spray,suspension
1 spray intranasal PRN PRN (Reason: congestion)
magnesium 200 MG tablet
600 mg PO DAILY
bupropion HCl 150 MG tablet extended release 24 hr
300 mg PO DAILY
cholecalciferol (vitamin D3) 1,000 UNITS tablet
3,000 units PO DAILY
melatonin 5 MG tablet
5 mg PO HS
Zinc 25 MG
25 mg PO QPM
mupirocin 1 APPLIC ointment
1 applic intranasal BID Qty: 1 0RF
aspirin 325 MG tablet,delayed release (DR/EC)
325 mg PO DAILY 0RF
magnesium hydroxide 30 ML suspension
30 ml PO DAILYPRN PRN (Reason: constipation) 0RF
pantoprazole 40 MG tablet,delayed release (DR/EC)
40 mg PO HS 0RF
omeprazole 40 MG capsule,delayed release(DR/EC)
40 mg PO HS Qty: 0 0RF
tramadol 50 MG tablet
50 mg PO Q6HPRN PRN (Reason: moderate-severe pain) Qty: 35 0RF
Rx Instructions:
1 tab moderate pain or 2 if pain severe
Dx joint replacement
ongoing therapy
carbidopa-levodopa 25-100 mg Tablet
1 tab PO QID
Discontinued
Rytary
48.75 mg PO 4XD
Rx Instructions:
RX- Rytary ER 48.75 mg-195 mg cap
Discharge Orders:
Discharge Patient (As Directed); Ordered 05/17/25
Ordered By: Ernst Cabrera
Discharge Date and Time
Print Language: TAMAZIGHT
[2025-05-17] MEDS: TYLENOL PO (16:00)
[2025-05-17 16:05] VITALS: BP 133/73
== END 2025-05-17 18:09 | DRG 536 ==
LOC: 2 SOUTH 02:35
PROVIDERS: Nurse Practitioner Family; ADMITTING PHYSICIAN Internal Medicine; ATTENDING PHYSICIAN Internal Medicine; CONSULT PHYSICIAN Orthopaedic Surgery; EMERGENCY PHYSICIAN Student in an Organized Health Care Education/Training Program; FAMILY PHYSICIAN Internal Medicine
DX: S72.22XA Displaced subtrochanteric fracture of left femur, initial encounter for closed fracture (principal); M97.02XA Periprosthetic fracture around internal prosthetic left hip joint, initial encounter; G20.A1 Parkinson's disease without dyskinesia, without mention of fluctuations; E03.9 Hypothyroidism, unspecified; I10 Essential (primary) hypertension; K21.9 Gastro-esophageal reflux disease without esophagitis; W01.0XXA Fall on same level from slipping, tripping and stumbling without subsequent striking against object, initial encounter; Z90.49 Acquired absence of other specified parts of digestive tract; Z88.0 Allergy status to penicillin; Z88.2 Allergy status to sulfonamides; J30.1 Allergic rhinitis due to pollen; E78.00 Pure hypercholesterolemia, unspecified
CPT/HCPCS: 72192; 73502; 80048; 85025; 97163; 97167; 97530; 97535; 99285

== ENCOUNTER → 2025-05-21 21:00 | Outpatient (REF) | payer OTHER, MEDICARE, SELFPAY ==
[2025-05-22 13:50] LABS: Urine Character Clear (Clear)
[2025-05-22 14:14] LABS: Urine Squamous Cell >30 /LPF (Few)
[2025-05-22 14:15] LABS: Urine White Cell 21-25 /HPF (0-5)
== END ==
LOC: OLABN 21:00
PROVIDERS: ATTENDING PHYSICIAN Student in an Organized Health Care Education/Training Program
DX: R39.15 Urgency of urination (principal)
CPT/HCPCS: 81003; 81015; 87086

== ENCOUNTER → 2025-05-24 10:03 | Outpatient (REF) | payer OTHER, MEDICARE, SELFPAY ==
[2025-05-24 12:29] LABS: Hematocrit 36.3 % (37.0-47.0); Hemoglobin 11.8 g/dL (12.0-16.0); Mean Corp Hgb Conc. 32.5 g/dL (33.0-37.0); Mean Corpuscular Volume 96.8 fL (81.0-99.0); Nucleated Red Blood Cells % 0 %; Platelet Count 230 10^3/uL (130-400); Red Cell Dist. Width 12.9 % (11.5-14.5)
[2025-05-24 13:17] LABS: TSH 0.94 uIU/ml (0.47-4.68)
[2025-05-24 13:25] LABS: ALT (SGPT) 12 U/L (0-35); AST (SGOT) 19 U/L (14-36); Albumin 3.4 g/dl (3.5-5.0); Alkaline Phosphatase 113 U/L (38-126); Blood Urea Nitrogen 26 mg/dl (7-17); Calcium 8.8 mg/dl (8.4-10.2); Carbon Dioxide 28 mmol/L (22-30); Chloride 104 mmol/L (98-107); Glucose 89 mg/dl (70-99); Potassium 4.1 mmol/L (3.5-5.1); Sodium 138 mmol/L (135-145); Total Protein 5.7 g/dl (6.3-8.2); eGFR > 60.00
== END ==
LOC: OLABN 10:03
PROVIDERS: ATTENDING PHYSICIAN Student in an Organized Health Care Education/Training Program
DX: I10 Essential (primary) hypertension (principal); E03.9 Hypothyroidism, unspecified
CPT/HCPCS: 36415; 80053; 84439; 84443; 85025

== ENCOUNTER → 2025-05-24 21:30 | Outpatient (REF) | payer OTHER, MEDICARE, SELFPAY ==
[2025-05-25 11:24] LABS: Urine Character Clear (Clear)
[2025-05-25 11:53] LABS: Urine White Cell 0-2 /HPF (0-5)
[2025-05-25 11:54] LABS: Urine Red Blood Cell 0-2 /HPF (0-2); Urine Squamous Cell 0-2 /LPF (Few)
== END ==
LOC: OLABN 21:30
PROVIDERS: ATTENDING PHYSICIAN Student in an Organized Health Care Education/Training Program
DX: R39.15 Urgency of urination (principal); R44.3 Hallucinations, unspecified
CPT/HCPCS: 81003; 81015; 87086